=== PATIENT | female | born 1995 | race Two or more races ===

== ENCOUNTER 2017-04-17 16:04 | Emergency (ER) | payer BC, OTHER ==
--- NOTE | 2017-04-17 18:02 | UC ---
FLU HPI - HPI Summary HPI Summary: 21 y/o female with no PMH other other b/l knee surgery. Patient states has had cold symptoms, nasal congestions, fatigue, sore throat. No difficulty swallowing. no sinus tenderness, no shortness of breath. no recent colds, no abx recently. noted "bumps" on back of L neck for past 2 days, mild tenderness. no abdominal pain - History of Current Complaint Chief Complaint: UCGeneralIllness Stated Complaint: ACHY,LUMP ON NECK Time Seen by Provider: 04/17/17 17:51 Hx Obtained From: Patient Hx Last Menstrual Period: 03/26/17 Onset/Duration: Sudden Onset, Lasting Days Severity Currently: Moderate Severity Initially: Moderate - Allergy/Home Medications Allergies/Adverse Reactions: Allergies Allergy/AdvReac Type Severity Reaction Status Date / Time No Known Allergies Allergy Verified 04/17/17 17:52 Home Medications: Home Medications NK [No Home Medications Reported] 04/17/17 [History Confirmed 04/17/17] PMH/Surg Hx/FS Hx/Imm Hx Previously Healthy: Yes - Surgical History Surgical History: Yes Surgery Procedure, Year, and Place: LEFT and RIGHT KNEE ACL RECON. ear tubes. hernia - Social History Alcohol Use: Weekly Substance Use Type: None Smoking Status (MU): Never Smoked Tobacco Review of Systems Constitutional: Chills, Fatigue ENT: Sore Throat Respiratory: Cough Neurological: Weakness Is Patient Immunocompromised?: No All Other Systems Reviewed And Are Negative: Yes Physical Exam Triage Information Reviewed: Yes Appearance: No Pain Distress, Well-Nourished, Ill-Appearing - mild Vital Signs: Initial Vital Signs Temp 99.8 F 04/17/17 17:44 Pulse 75 04/17/17 17:44 Resp 14 04/17/17 17:44 BP 116/71 04/17/17 17:44 Pulse Ox 100 04/17/17 17:44 Vital Signs Reviewed: Yes Eyes: Positive: Conjunctiva Clear ENT: Positive: Pharyngeal erythema - minimal, TMs normal Neck: Positive: Supple, Nontender, Enlarged Nodes @ - posterior cervical chain, left sided only, mild tenderness to light palpation full ROM of cervical neck in all directions without tenderness, Neurological Exam: Normal Psychological Exam: Normal Flu Course/Dx - Course Course Of Treatment: monospot taken, patient advised to avoid contact sports until cleared, lkely viral in nature. - Differential Dx/Diagnosis Differential Diagnosis/HQI/PQRI: Bronchitis, Broncholiolitis Provider Diagnoses: viral upper respiatory illness Discharge - Discharge Plan Condition: Stable Disposition: HOME Patient Education Materials: Mononucleosis (ED), Upper Respiratory Infection ( ED) Forms: *School Release Referrals: Phill BURCH,Julio Sharp [Primary Care Provider] - Additional Instructions: - NO contact sports until results from MonoSpot test resulted. - Motrin/ Tylenol as needed for pain - Return to ER with fever, chills, headache, or increasing throat pain
[2017-04-17 18:07] VITALS: BP 116/71
[2017-04-18 10:13] LABS: EBV Response YES
[2017-04-18 10:41] LABS: Mono Internal Control QC Line Present
[2017-04-18 10:42] LABS: Manual Entry Verification CR
[2017-04-19 13:42] LABS: EBV Capsid Ag IgG Ab Negative (Negative); EBV Capsid Ag IgM Ab Negative (Negative)
== END 2017-04-17 18:29 | disposition home or self-care (01) ==
LOC: UCCORT 16:04
DX: R22.1 Localized swelling, mass and lump, neck (principal)
CPT/HCPCS: 36415; 86308; 86664; 86665; 99201; G0463

== ENCOUNTER 2017-06-16 13:57 | Emergency (ER) | payer OTHER ==
[2017-06-16 14:09] VITALS: BP 141/87
--- NOTE | 2017-06-16 14:18 | UC ---
Head Injury HPI - HPI Summary HPI Summary: 21F presents with head injury on Friday. She was in a rugby tournament this weekend. She was hit in the jaw on Friday. On Friday she was hit and she believes that she hit head on ground. Right afterwards her vision was blurry for a minute and she developed a headache so she stopped playing. She denies any LOC or amnesia. She admits to dizziness when she closes her eyes. She denies any vomiting but she admits to nausea. She admits to a mild headache. She has been taking Tylenol. - History Of Current Complaint Chief Complaint: UCHeadInjury Stated Complaint: HEAD INJURY Time Seen by Provider: 06/16/17 14:00 Hx Last Menstrual Period: 03/26/17 - Allergies/Home Medications Allergies/Adverse Reactions: Allergies Allergy/AdvReac Type Severity Reaction Status Date / Time No Known Allergies Allergy Verified 06/16/17 14:09 PMH/Surg Hx/FS Hx/Imm Hx Endocrine History: Other Other Endocrine History: no DM Cardiovascular History: Other Other Cardiovascular History: no HTN - Surgical History Surgical History: Yes Surgery Procedure, Year, and Place: LEFT and RIGHT KNEE ACL RECON. ear tubes. hernia - Family History Known Family History: Negative: Seizure Disorder - Social History Alcohol Use: Occasionally Substance Use Type: None Smoking Status (MU): Never Smoked Tobacco Review of Systems Constitutional: Negative Gastrointestinal: Nausea Neurological: Headache All Other Systems Reviewed And Are Negative: Yes Physical Exam Triage Information Reviewed: Yes Appearance: Well-Appearing Vital Signs: Initial Vital Signs Temp 98.5 F 06/16/17 14:06 Pulse 88 06/16/17 14:06 Resp 16 06/16/17 14:06 BP 141/87 06/16/17 14:06 Pulse Ox 100 06/16/17 14:06 Vital Signs Reviewed: Yes Eyes: Positive: Conjunctiva Clear, Other: - nystagmus present with EOM, JR, normal fundoscopic exam ENT: Positive: Pharynx normal, TMs normal Respiratory: Positive: Lungs clear, Normal breath sounds Cardiovascular: Positive: RRR Abdomen Description: Positive: Nontender, Soft Bowel Sounds: Positive: Present Musculoskeletal: Positive: Strength Intact, ROM Intact Neurological: Positive: Alert, Other: - cnII-XII normal, finger to nose intact Psychological Exam: Normal Skin Exam: Normal Head Injury Course/Dx - Course Course Of Treatment: 21F presents with head injury on Friday. She was in a rugby tournament this weekend. She was hit in the jaw on Friday. On Friday she was hit and she believes that she hit head on ground. Right afterwards her vision was blurry for a minute and she developed a headache so she stopped playing. She denies any LOC or amnesia. She admits to dizziness when she closes her eyes. She denies any vomiting but she admits to nausea. She admits to a mild headache. She has been taking Tylenol. on exam normal neuro exam. has some nystagmus on exam. no step off. with ch[place] CT rules does not need imaging. gave zofran for nausea relief. warned of signs to go to ED for. told to modify activities with concussion present and to follow up with primary about concussion and blood pressure as is elevaed at this visit without diagnosis of HTN. patient understand and agrees with plan - Differential Dx/Diagnosis Differential Diagnosis/HQI/PQRI: Concussion Without LOC, Contusion, Intracranial Bleed Provider Diagnoses: head injury Discharge - Discharge Plan Condition: Good Disposition: HOME Prescriptions: Ondansetron ODT TAB* [Zofran 4 MG Odt TAB*] 4 mg PO Q6H PRN #12 tab.odt PRN Reason: Nausea Patient Education Materials: Concussion (ED) Forms: *School Release Referrals: Phill BURCH,Julio Sharp [Primary Care Provider] - Additional Instructions: Follow up with primary care physician to get cleared for sports Modify activities as tolerated Can use Tylenol or ibuprofen for headache Take zofran every 6 hours for nausea Return if experiences severe headache, vomiting, change in mental status, or any new or worsening symptoms
== END 2017-06-16 14:26 | disposition home or self-care (01) ==
LOC: UCCORT 13:57
DX: S09.90XA Unspecified injury of head, initial encounter (principal); W50.0XXA Accidental hit or strike by another person, initial encounter; Y93.63 Activity, rugby; Y92.9 Unspecified place or not applicable
CPT/HCPCS: 99212; G0463